=== PATIENT | female | born 1995 | race American Indian/Alaskan Native ===

== ENCOUNTER 2019-10-25 21:27 | Emergency (ER) | payer BC ==
[2019-10-25 21:54] LABS: Hematocrit 36.1 % (30.3-42.9); Hemoglobin 12.8 gm/dl (10.1-14.3); Mean Corpuscular HGB Conc 35 % (30-34); Mean Corpuscular Volume 85 fl (79-97); Platelet Count 362 K/mm3 (140-440); Red Blood Count 4.25 M/mm3 (3.65-5.03); Red Cell Distribution Width 12.8 % (13.2-15.2)
[2019-10-25 22:15] LABS: BUN/Creatinine Ratio 12; Blood Urea Nitrogen 6 mg/dL (7-17); Calcium 9.1 mg/dL (8.4-10.2); Hemolysis Index 9
[2019-10-25 22:36] LABS: Total Cells Counted 100
[2019-10-25 22:37] LABS: Platelet Estimate Consistent w Auto; RBC Morphology Normal
[2019-10-25] MEDS ORDERED: POTASSIUM CHLORIDE ER 20 MEQ TAB PO ONE (23:17)
[2019-10-25] MEDS ORDERED: SODIUM CHLORIDE 0.9% 1000 ML 1,000 ML IV ONE (23:17)
--- NOTE | 2019-10-25 23:38 | Emergency Department Report ---
ED General Adult HPI - General Chief complaint: Medical Clearance Stated complaint: POSS DRUG INGESTION Time Seen by Provider: 10/25/19 23:02 Source: patient, family Mode of arrival: Ambulatory Limitations: No Limitations - History of Present Illness Initial comments: 24yo F presents to ED after feeling "weird" and generally weak after eating a marijuana edible. Pt states she feels like she is moving very slowly and everything else is moving fast. -: This evening Consistency: other (improving) Improves with: none Worsens with: none Associated Symptoms: denies other symptoms Treatments Prior to Arrival: none - Related Data Allergies Allergy/AdvReac Type Severity Reaction Status Date / Time No Known Allergies Allergy Unverified 10/25/19 21:41 ED Review of Systems ROS: Stated complaint: POSS DRUG INGESTION Other details as noted in HPI Comment: All other systems reviewed and negative Constitutional: weakness. denies: chills, fever Respiratory: denies: shortness of breath Gastrointestinal: denies: nausea, vomiting ED Past Medical Hx - Past Medical History Previous Medical History?: No - Surgical History Past Surgical History?: No ED Physical Exam - General Limitations: No Limitations General appearance: alert, in no apparent distress - Head Head exam: Present: atraumatic, normocephalic - Eye Eye exam: Present: normal appearance, PERRL, EOMI - ENT ENT exam: Present: mucous membranes moist - Neck Neck exam: Present: normal inspection - Respiratory Respiratory exam: Present: normal lung sounds bilaterally. Absent: respiratory distress - Cardiovascular Cardiovascular Exam: Present: regular rate, normal rhythm - GI/Abdominal GI/Abdominal exam: Present: soft. Absent: distended, tenderness - Extremities Exam Extremities exam: Present: normal inspection - Neurological Exam Neurological exam: Present: alert, oriented X3, CN II-XII intact. Absent: motor sensory deficit - Psychiatric Psychiatric exam: Present: normal affect, normal mood - Skin Skin exam: Present: warm, dry, intact, normal color ED Course Vital Signs 10/25/19 10/25/19 10/25/19 21:38 23:03 23:04 Temperature 98.0 F Pulse Rate 103 H 87 92 H Respiratory 20 17 19 Rate Blood Pressure 126/81 118/73 O2 Sat by Pulse 100 95 Oximetry 10/25/19 10/25/19 10/25/19 23:16 23:30 23:46 Temperature Pulse Rate 98 H 76 76 Respiratory 14 15 15 Rate Blood Pressure 118/73 118/73 118/73 O2 Sat by Pulse 100 94 98 Oximetry 10/26/19 10/26/19 10/26/19 00:00 00:16 00:30 Temperature Pulse Rate 90 77 74 Respiratory 13 16 18 Rate Blood Pressure 118/73 118/73 118/73 O2 Sat by Pulse 98 98 97 Oximetry 10/26/19 10/26/19 00:46 00:55 Temperature 98.5 F Pulse Rate 74 Respiratory 14 Rate Blood Pressure 118/73 O2 Sat by Pulse 98 Oximetry ED Medical Decision Making - Lab Data Result diagrams: 10/25/19 21:43 10/25/19 21:43 - Medical Decision Making Generalized weakness after eating an edible. Pt w/ hypokalemia, potassium of 2.6. Magnesium is normal. Pt was given IV fluids and PO potassium replacement. Feeling much better at this time. Remainder of labs unremarkable. Vitals stable. Will d/c home. Outpt f/u advised, return precautions given. - Differential Diagnosis drug intoxication, dehydration Critical care attestation.: If time is entered above; I have spent that time in minutes in the direct care of this critically ill patient, excluding procedure time. ED Disposition Clinical Impression: Hypokalemia, Marijuana intoxication Disposition: -01 TO HOME OR SELFCARE Is pt being admited?: No Condition: Stable Instructions: Hypokalemia (ED), Cannabis Abuse (ED) Referrals: PRIMARY CARE, [Primary Care Provider] - 3-5 Days [facility] [Provider Group] - 3-5 Days Time of Disposition: 01:04
[2019-10-26 00:30] VITALS: BP 118/73
== END 2019-10-26 01:15 | disposition home or self-care (01) ==
LOC: ED 21:27
DX: E87.6 Hypokalemia (principal); F12.929 Cannabis use, unspecified with intoxication, unspecified
CPT/HCPCS: 36415; 80048; 83735; 85007; 85025; 99283; J7030; 80320; G0480